=== PATIENT | female | born 1970 | race Caucasian/White ===

== ENCOUNTER → 2018-10-22 | Outpatient (CLI) | payer OTHER | LOC: RAD 09:50 | DX: Z12.31 Encounter for screening mammogram for malignant neoplasm of breast (principal) ==

== ENCOUNTER → 2018-10-28 | Outpatient (CLI) | payer OTHER | LOC: ULTRA 13:28 | DX: N60.02 Solitary cyst of left breast (principal); N60.01 Solitary cyst of right breast ==

== ENCOUNTER 2019-02-18 06:03 | Inpatient (IN) | payer OTHER ==
[2019-02-13 15:04] LABS: HEMATOCRIT 40.8 % (37.0-47.0); HEMOGLOBIN 13.4 gm/dL (12.0-15.0); MCH 28.3 pg (26.0-34.0); MCHC 32.9 g/dL (28.0-37.0); RBC 4.74 mil/uL (4.20-5.00); RDW 14.4 % (10.5-14.5); WBC 8.4 thou/uL (4.0-11.0)
[2019-02-13 15:06] LABS: URINE BILIRUBIN NEGATIVE (Negative); URINE BLOOD 1+ (Negative); URINE CLARITY SL CLOUDY; URINE COLOR YELLOW; URINE GLUCOSE-RANDOM* NEGATIVE (Negative); URINE KETONES NEGATIVE (Negative); URINE LEUKOCYTES TRACE (Negative); URINE NITRITE NEGATIVE (Negative); URINE PROTEIN (DIPSTICK) NEGATIVE (Negative); URINE SPECIFIC GRAVITY >= 1.030 (1.005-1.035); URINE UROBILINOGEN 0.2 E.U./dl (0.2-1.0)
[2019-02-13 15:12] LABS: ALBUMIN 3.6 g/dL (3.4-5.0); CALCIUM 9.3 mg/dL (8.5-10.1); CREATININE 0.7 mg/dL (0.6-1.0); POTASSIUM 4.1 mmol/L (3.5-5.1)
[2019-02-13 15:15] LABS: SQUAMOUS >10 Many /LPF (0-3); URINE RBC 0-2 Rare /HPF (0-2); URINE WBC 0-5 Rare /HPF (0-5)
[2019-02-13 15:16] LABS: BACTERIA >30 Many /HPF (None Seen); CASTS None Seen /LPF (None Seen); CRYSTALS None Seen /LPF (None Seen)
[2019-02-13 15:18] LABS: PROTIME 9.7 Seconds (9.3-11.4)
[2019-02-18] VITALS (7 sets, daily range): BP systolic 109–136; BP diastolic 67–89
[~2019-02-18] VITALS: Ht 175.3 cm; Wt 123.4 kg
--- NOTE | 2019-02-18 20:17 | NUR ---
ASSUMED PT CARE AT 1330. A&Ox4. IV SALINE LOCKED. PATIENT PAIN CONTOLLED TOLLERATED. [employer] DRESSING INTACT. POLAR PACK IN PLACE. PT IS REPOSITIONING HERSELF TOLERATED WITH EDUCATION ON NOT BENDING HER OPERATIVE LEFT KNEE. PT GOT UP WITH PT. TODAY AND TOLERATED WELL. PT GETS UP TO THE TOILET AND IS A STAND BY ASSIST. PT RECEIVED NERVE BLOCK IN OR.
--- NOTE | 2019-02-19 04:58 | NUR ---
Assumed pt care at 1900. Pt's A/OX4, VSS. Up with AX1, GB/RW, WBAT.C/o pain 10/09 medicated with Percocet with partial relief reported. Polar pack applied. Fall precautions in place, calls approp. C/o dry throat, Cepacol ordered per RENTAL CLERK Jana. Will continue to monitor the pt.
[2019-02-19 05:00] VITALS: BP 117/52
[2019-02-19 05:12] LABS: CALCIUM 8.5 mg/dL (8.5-10.1); CREATININE 0.8 mg/dL (0.6-1.0); POTASSIUM 4.1 mmol/L (3.5-5.1)
[2019-02-19 05:31] LABS: HEMATOCRIT 35.2 % (37.0-47.0); HEMOGLOBIN 11.2 gm/dL (12.0-15.0); MCH 27.6 pg (26.0-34.0); MCV 86.2 fL (80.0-100.0); RBC 4.08 mil/uL (4.20-5.00); RDW 14.3 % (10.5-14.5); WBC 15.2 thou/uL (4.0-11.0)
[2019-02-19 08:32] VITALS: BP 109/62
[2019-02-19 15:23] VITALS: BP 109/62
--- NOTE | 2019-02-19 15:24 | NUR ---
Case opened to follow for dc planning. Policyholder Information Clerk visited with the pt at bedside. The pt had surgery yesterday and is being covered by her workers comp ins from an injury in 1990. The pt reports that they have authorized a rwalker for deliever as well as a cpm and polar pack. She got the cpm and polar pack prior to her surgery and needs to have the deliever of the rwalker switch to the hospital vs home. Pt is arranging outpt therapy at [facility] through her works comp also and they have authorized 30 treatments already. Policyholder Information Clerk spoke with Tera Arellano the claim processer at [phone] and they will switch the delievery to the hospital for later today. Her claim # is SAC [id number]. No other needs indicated at this time. The pt did well with PT today and is anticipating dc to home tomorrow.
--- NOTE | 2019-02-19 16:15 | NUR ---
PT A&OX4. IV INTACT IN L HAND. GRAY DRSG TO L KNEE WITH POLAR PACK IN PLACE. PT IS FEELING MORE PAIN THIS AFTERNOON. TOLERATING PO PAIN MEDS WELL. HAS BEEN UP WITH PT TWICE TODAY. WILL CONT POC.
[2019-02-19 17:56] VITALS: BP 127/71
[2019-02-19 19:48] VITALS: BP 103/62
--- NOTE | 2019-02-20 05:07 | NUR ---
Assumed pt care at 1900. A/OX4,VSS. Up with assist of . C/o pain medicated per EMAR with partial relief reported. C/o muscle spasms behind left leg order obtained for Flexiril from Jana MATIAS and administered with relief reported. Resting quietly at this time with no distress noted, will continue to monitor pt.
[2019-02-20 05:31] LABS: HEMATOCRIT 33.2 % (37.0-47.0); HEMOGLOBIN 10.9 gm/dL (12.0-15.0); MCH 28.2 pg (26.0-34.0); MCHC 32.9 g/dL (28.0-37.0); MCV 85.6 fL (80.0-100.0); RBC 3.87 mil/uL (4.20-5.00); RDW 14.2 % (10.5-14.5); WBC 9.7 thou/uL (4.0-11.0)
[2019-02-20 08:30] VITALS: BP 128/65
--- NOTE | 2019-02-20 14:31 | O ---
[address] [address] OPERATIVE REPORT Name: CARSON AVILEZ Room #: 447-P ADM IN M.R.#: [id number] Admission: 02/18/19 Attend Phys: Loyd Rai MD Discharge: Date of : 68 Report #: [id number] THIS REPORT FOR: //name// CC: Tyler Linda Rai DATE OF SERVICE: 02/18/2019 SERVICE: Orthopedics. FACILITY: [facility]. SURGEON: Loyd Rai MD ONLINE MEDIA DIRECTOR: Olga Simmons NP. INDICATION FOR ONLINE MEDIA DIRECTOR: Retraction, extremity position and assistance with reconstruction. PREOPERATIVE DIAGNOSES: 1. Left knee pain. 2. Left knee end-stage osteoarthritis. 3. Left knee retained orthopedic implant. 4. Left knee arthrofibrosis and patellar maltracking. POSTOPERATIVE DIAGNOSES: 1. Left knee pain. 2. Left knee end-stage osteoarthritis. 3. Left knee retained orthopedic implant. 4. Left knee arthrofibrosis and patellar maltracking. 5. Traumatic ligamentous insufficiency, left knee. PROCEDURES: 1. Left total knee arthroplasty. 2. Computer-assisted robotic navigation. 3. Open hardware removal, left tibia. 4. Open lysis of adhesions, left knee with lateral release, left patella. COMPLICATIONS: None. DRAINS: None. SPECIMENS: None. IMPLANTS: [employer] Oxinium Journey II size 4 femur with size 5 tibial baseplate and 13 mm poly and 32 mm patellar button. [address] [place] [address] OPERATIVE REPORT Name: CARSON AVILEZ Room #: 447-P [facility] IN ..#: [id number] Admission: 02/18/19 Attend Phys: Loyd Rai MD Discharge: Date of : 68 Report #: [id number] HISTORY: The patient is a 48-year-old female who many years ago sustained an injury to her left knee in a work-related fall. She has had multiple surgeries since then, originally with a complex ligament reconstruction, which did have to be revised. She has had multiple other surgeries and has developed osteoarthritis of the knee as a result. All of the above diagnoses are secondary to a work-related injury in [place] previously. Her knee pain had progressed to the point of severe lifestyle limiting. We had discussion about treatment options. Risks, benefits, alternatives and indications of surgery were discussed with her in detail. Risks include but not limited to pain, bleeding, infection, injury to nerves or blood vessels, persistent pain despite surgical intervention, failure of any repairs, progression of any preexisting chondral injury, stiffness, need for further surgery as well as revision or fracture as well as complications related to anesthesia such as stroke, heart attack, pulmonary complications, thromboembolic disease and . Despite these risks, she wished to proceed. PROCEDURE IN DETAIL: After the left lower extremity was correctly identified in the preoperative holding area as operative extremity, the patient underwent placement of a single shot regional nerve block. She was then taken to the operating room where general anesthesia was induced without complication. Tourniquet was applied to the left leg. Left lower extremity was then prepped and draped in standard sterile fashion. Timeout procedure was performed. Examination under anesthesia demonstrated approximately 10-degree flexion contracture and knee flexion to about 100 degrees. She had significant amount of stiffness and the left leg was then prepped and draped in standard sterile fashion. Timeout procedure was performed. Prophylactic antibiotics were administered at appropriate time. Esmarch was used. Tourniquet was inflated to 300 mmHg. Her previous tibial scar from ACL reconstruction was used and she had an anterior skin incision that was just off midline, which spaced it further away from the lateral reconstruction scar. Full-thickness skin flaps were developed. There was immediately encountered to be a significant amount of scarring around the patella and the patellar tendon into tubercle insertion. I had spent a fair amount of time just on the lysis of adhesions, superficially working out at the capsular level. The [place] elif x 2 were then encountered on the anterior tibia and then these were removed with the staple removal device x 2. The 3rd staple is located on the femoral side and is out of the way and so we did not pursue extra dissection to expose and remove this. After this was completed, medial parapatellar arthrotomy was performed and dissection was taken down to the knee. The menisci remnants were removed. The retropatellar fat pad was removed. A fair amount of dissection was required here specifically in order to elevate the patellar tendon and mobilize the patella. I was unable to nely it until I completed a lateral release of the [address] [address] OPERATIVE REPORT Name: CARSON AVILEZ LAURA Room #: 447-P [facility] IN ..#: [id number] Admission: 02/18/19 Attend Phys: Loyd Rai MD Discharge: Date of : 68 Report #: [id number] patella with the Metzenbaum scissors and then completed osteophyte removal and exposure of the knee. We placed the computer navigation half pins in the tibia and the femur in a typical fashion, then calibrated the knee and determined her to have a 6-degree flexion contracture after exposure and then sized, used the robotic-assisted computer navigation to determine appropriate implant size and position . After the knee was exposed, the cruciates had been removed as well. I used a robotic arm to distal cut on the femur and then placed 5-in-1 cutting block, then prepared the femur. All osteophytes were removed. The anterior femoral cut flushed with the anterior cortex and osteophytes were removed. She had an extensive amount of posterior osteophytes and loose bodies within the posterior knee, which were removed at the end of the preparation of the knee. Due to her history of ligamentous injury & subsequent chronic insufficiency, the gaps were tight on initial templating and then loose after the bone cuts had been all completed on both the femur and the tibia, which is the reason for the larger size polyethylene insert that was ultimately required. After the knee was repaired, the trials were placed. We initially anticipated an 11 or 12 mm poly insert, I assessed balancing and then checked range of motion, alignment with the navigation system once again, took a final implant position and irrigated the knee thoroughly after removing the trials and then cemented the final implants into position after the box cut had been completed in standard fashion and the patella prepared. Prior to letting the cement cure, let the tourniquet down and obtained hemostasis and I used periarticular injection cocktail while the cement was curing. At the completion of this, knee was taken through full range of motion, again assessed for osteophytes and cement, irrigated the knee once more, closed the arthrotomy over 1 gram of vancomycin powder and then performed a gravity flexion test after the 0 Vicryl layer was completed. At this point, the skin was closed with 2-0 Vicryl followed by running subcuticular 3-0 Monocryl and Dermabond. Sterile dressing was applied. The patient was then awakened from anesthesia and taken to recovery room in stable condition. No complications. All counts were reported as correct. <ELECTRONICALLY SIGNED> By: Loyd Rai MD 02/20/19 1431 [id number] Loyd Rai MD /nt
[2019-02-20 14:34] VITALS: BP 109/62
[2019-02-20 14:45] VITALS: BP 109/62
--- NOTE | 2019-02-20 15:16 | NUR ---
AFTER MULTIPLE CALLS IT WAS LEARNED THAT PHIL AT EXT [id number] IS ACTUALLY THE DME PROCESSOR. TRIED TO REACH HER AND A MAINTENANCE TRAINER WITHOUT SUCCESS SINCE THERE IS NO ROLLER WALKER HERE YET. LEARNED THAT THE ROLLER WALKER WAS DELIVERED TO PT'S HOME AND HER [facility]IDE HOME WILL BE BRINGING IT WHEN THEY COME TO PICK HER UP.
--- NOTE | 2019-02-20 15:54 | NUR ---
DC ORDERS RECEIVED. DC INSTRUCTIONS, SCRIPTS AND F/U APPOINTMENT REVIEWED WITH PT. IV REMOVED FROM L HAND. VOLUNTEER ESCORTED PT TO MAIN ENTRANCE.
== END 2019-02-20 15:55 | disposition home or self-care (01) | DRG 470 ==
LOC: TBA 06:03 → PRE 08:01 → 4S 13:00 → PRE 13:47 → ENTRNSPT 02-20 15:47 → 4S 02-20 15:55
PROVIDERS: ADMIT Orthopaedic Surgery Sports Medicine
PROC: 0SND0ZZ Release Left Knee Joint, Open Approach (ICD-10-PCS; principal; 2019-02-18)
PROC: 8E0YXBZ Computer Assisted Procedure of Lower Extremity (ICD-10-PCS; principal; 2019-02-18)
PROC: 0SRD069 Replacement of Left Knee Joint with Oxidized Zirconium on Polyethylene Synthetic Substitute, Cemented, Open Approach (ICD-10-PCS; principal; 2019-02-18)
PROC: 0QPH04Z Removal of Internal Fixation Device from Left Tibia, Open Approach (ICD-10-PCS; principal; 2019-02-18)
PROC: 8E0Y0CZ Robotic Assisted Procedure of Lower Extremity, Open Approach (ICD-10-PCS; principal; 2019-02-18)
DX: M17.12 Unilateral primary osteoarthritis, left knee (principal); M24.662 Ankylosis, left knee; M23.8X2 Other internal derangements of left knee; Z88.8 Allergy status to other drugs, medicaments and biological substances
CPT/HCPCS: 10102; 50010; 50101; 50415; 50954; 51130; 51225; 53000; 53078; 54118; 55372; 56527; 56528; 57095; 57103; 57110; 57127; 57181; 62110; 62900; 64039; 70005

== ENCOUNTER 2019-03-18 16:57 | Emergency (ER) | payer OTHER ==
[~2019-03-18] VITALS: Ht 175.3 cm; Wt 120.2 kg
[2019-03-18 19:25] VITALS: BP 120/52
== END 2019-03-18 19:25 | disposition home or self-care (01) ==
LOC: ER 16:57
DX: M25.562 Pain in left knee (principal); Z88.8 Allergy status to other drugs, medicaments and biological substances; Z96.652 Presence of left artificial knee joint

== ENCOUNTER → 2019-03-31 | Outpatient (CLI) | payer OTHER | LOC: ULTRA 08:23 | DX: M79.605 Pain in left leg (principal); M79.89 Other specified soft tissue disorders; Z96.652 Presence of left artificial knee joint ==

== ENCOUNTER → 2019-06-05 | Outpatient (CLI) | payer OTHER | LOC: ULTRA 10:01 | DX: Z12.31 Encounter for screening mammogram for malignant neoplasm of breast (principal); E04.2 Nontoxic multinodular goiter; N64.89 Other specified disorders of breast ==

== ENCOUNTER → 2020-06-01 | Outpatient (CLI) | payer OTHER | LOC: LAB 12:26 | PROVIDERS: ATTEND Nurse Practitioner | DX: R06.02 Shortness of breath (principal); Z20.822 Contact with and (suspected) exposure to COVID-19 ==